=== PATIENT | female | born 1975 | race Caucasian/White ===

== ENCOUNTER 2020-07-06 10:03 | Inpatient (IN) | payer BC ==
[2020-07-06] VITALS (10 sets, daily range): BP systolic 112–189; BP diastolic 59–114
[~2020-07-06] VITALS: Ht 175.2 cm; Wt 126.3 kg
[2020-07-06 12:27] LABS: BASO % 0.3 % (0.0-1.0); EOS # 0.1 10*3/uL (0.0-0.4); EOS % 1.5 % (1.0-4.0); HEMATOCRIT 36.7 % (37.0-47.0); LYMPH # 2.2 10*3/uL (1.3-4.4); LYMPH % 25.2 % (27.0-41.0); MEAN CELL VOLUME 83.4 fl (81.0-99.0); MEAN CORPUSCULAR HGB 26.4 pg (27.0-31.0); MEAN CORPUSCULAR HGB CONC 31.6 g/dl (33.0-37.0); MEAN PLATELET VOLUME 9.3 fl (9.6-12.3); MONO # 0.6 10*3/uL (0.1-1.0); MONO % 6.9 % (3.0-9.0); NEUT # 5.7 10*3/uL (2.3-7.9); NEUT % 65.9 % (47.0-73.0); PLATELET COUNT AUTOMATED 318 10*3/uL (130-400); RED CELL DISTRI WIDTH 15.2 % (0-14.5); WHITE BLOOD COUNT 8.7 10*3/uL (4.8-10.8)
[2020-07-06 12:38] LABS: ACT PARTIAL THROMBO TIME 32.4 SECONDS (20.0-32.1); INTERNATIONAL NORM RATIO 2.1 (2.0-3.5)
[2020-07-06 12:43] LABS: ALBUMIN 3.5 gm/dl (3.1-4.5); ALKALINE PHOSPHATASE 79 U/L (45-117); BUN 12 mg/dl (7-24); CHLORIDE 114 mmol/L (98-107); CREATININE 0.94 mg/dL (0.55-1.02); POTASSIUM 3.3 mmol/L (3.5-5.1); SGOT/AST 14 IU/L (3-35); SGPT/ALT 23 U/L (12-78); SODIUM 141 mmol/L (136-145); TOTAL PROTEIN 7.2 gm/dL (6.4-8.2)
--- NOTE | 2020-07-06 13:13 | NUR ---
PT STATED THAT HER PAIN WAS GOOD AFTER RECIEVING HER MEDICINE.
--- NOTE | 2020-07-06 15:14 | NUR ---
PT SEDATED WITH 20 MG ETOMIDATE, PT TOLERATED WELL. REDUCTION BY DR BRIDGES. SEDATION SUPERVISED BY DR LYNN STARTED TIME 1455 END TIME 1507. SEE VITALS.
--- NOTE | 2020-07-06 16:15 | NUR ---
Time: 1614 A 44 year old FEMALE admitted to 5E under services of JED RIVERA DO, Pt. arrived via stretcher from ER. Chief complaint: FRACTURE RIGHT ANKLE. AMBAR MORALEZ
--- NOTE | 2020-07-06 16:53 | NUR ---
PT REQUESTED AND WAS MEDICATED WITH MORPHINE IV FOR C/O RIGHT ANKLE PAIN.
--- NOTE | 2020-07-06 16:57 | NUR ---
PODITARY DR ALCALA AND RESIDENT AT BEDSIDE TO EXAMINE PATIENT.
--- NOTE | 2020-07-06 17:30 | NUR ---
PT STATES MORPHINE IS HELPING.
--- NOTE | 2020-07-06 17:53 | NUR ---
PT TRANSPORTED TO ER FOR CLOSED REDUCTION OF RIGHT ANKLE PER PODITARY.
--- NOTE | 2020-07-06 18:00 | NUR ---
PT HAS RETURNED TO THER FOR A SECOND REDUCTION.
--- NOTE | 2020-07-06 18:34 | NUR ---
PT IS AWAKE AND TALKING WITH ME. VSS.
--- NOTE | 2020-07-06 18:44 | NUR ---
PT IS WAKE AND ORINETED X3, PT WAS TIRATED TO ROOM AIR POX 97%.
--- NOTE | 2020-07-06 18:46 | NUR ---
START TIME OF SECOND REDUCTION 180 STOP TIME OUT 1816.
--- NOTE | 2020-07-06 18:48 | NUR ---
PT WAKE AND GIVEN ICE CHIPS. PT WILL BE MONITORED IN ER FOR 1 HOUR POST REDUCTION.
--- NOTE | 2020-07-06 19:47 | NUR ---
PATIENT RETURNED BACK TO ROOM VIA BED. RIGHT FOOT WRAPPED LOOKS LIKE SOFT CAST.
--- NOTE | 2020-07-06 20:45 | NUR ---
MORPHINE GIVEN PER ORDER FOR PAIN RIGHT FOOT RATED "6" SEE MAR.
--- NOTE | 2020-07-06 21:40 | NUR ---
MORPHINE EFFECTIVE FOR PAIN PER PT.
[2020-07-06] MEDS ORDERED: MEDROXYPROGESTE10 M1 PO (22:49)
[2020-07-06] MEDS ORDERED: WARFARIN SODIU7.5 MG PO (22:50)
[2020-07-06] MEDS ORDERED: Synthroid,Levo88 MCG PO (22:51)
[2020-07-06] MEDS ORDERED: TOPIRAMATE100 M2 PO (22:52)
[2020-07-06] MEDS ORDERED: OMEPRAZOLE MAGN20 MG PO (22:53)
[2020-07-06] MEDS ORDERED: ESCITALOPRAM OX10 MG PO (22:54)
[2020-07-07] VITALS: BP 103/63
--- NOTE | 2020-07-07 01:14 | NUR ---
MORPHINE GIVEN PER ORDER FOR PAIN RIGHT FOOT RATED "6" SEE MAR. PATIENT UP TO BEDSIDE COMMODE NO WEIGHT BEARING ASSISTANCE X 1 AND USED WALKER FOR STABILITY AND THEN BACK TO BED. RIGHT LEG ELEVATED ON PILLOW
--- NOTE | 2020-07-07 01:30 | NUR ---
2ND IV STARTED IV started left forearm with #22 protective cath after 1st attempts. Site prepped with Chloroprep. Sterile dressing applied. Patient tolerated procedure well. CORINE KAPOOR J
--- NOTE | 2020-07-07 02:10 | NUR ---
PATIENT SLEEPING NO APPEARS TO NOT BE IN DISTRESS AT THIS TIME.
--- NOTE | 2020-07-07 03:55 | NUR ---
HEPARIN STOPPED PER PROTOCOL FOR 1 HR AND DECREASED PER PROTOCOL.
--- NOTE | 2020-07-07 04:22 | NUR ---
CALLED DR. RAINES AND NOTIFIED HIM OF CRITICL PTT AND THAT HEPARIN PROTOCOL IS BEING FOLLOWED. DR. RAINES AGREED.
--- NOTE | 2020-07-07 05:04 | NUR ---
MORPHIN GIVEN PER ORDER FOR RIGHT FOOT PAIN RATED "8" SEE MAR. IV HEPARIN RESTARTED AT LOWER RATE.
--- NOTE | 2020-07-07 05:10 | NUR ---
UP TO BEDSIDE COMMODE ASSISTANCE WITH 1 STAFF/ WALKER NO WEIGHT BEARING ON RIGHT LEG.
--- NOTE | 2020-07-07 06:00 | NUR ---
MORPHINE EFFECTIVE FOR PAIN PER PT.
[2020-07-07 06:38] LABS: BASO # 0.1 10*3/uL (0.0-0.1); BASO % 0.6 % (0.0-1.0); EOS # 0.3 10*3/uL (0.0-0.4); EOS % 4.1 % (1.0-4.0); HEMATOCRIT 35.7 % (37.0-47.0); MEAN CELL VOLUME 82.6 fl (81.0-99.0); MEAN CORPUSCULAR HGB 26.2 pg (27.0-31.0); MEAN CORPUSCULAR HGB CONC 31.7 g/dl (33.0-37.0); MEAN PLATELET VOLUME 9.2 fl (9.6-12.3); MONO # 0.5 10*3/uL (0.1-1.0); NEUT % 50.9 % (47.0-73.0); PLATELET COUNT AUTOMATED 276 10*3/uL (130-400); RED BLOOD COUNT 4.32 10*6/uL (4.10-5.10); RED CELL DISTRI WIDTH 15.2 % (0-14.5); WHITE BLOOD COUNT 7.8 10*3/uL (4.8-10.8)
[2020-07-07 06:48] LABS: BUN 8 mg/dl (7-24); CHLORIDE 113 mmol/L (98-107); CHOLESTEROL 168 mg/dL (<200); CREATININE 0.71 mg/dL (0.55-1.02); HDL CHOLESTEROL 41 mg/dl (40-60); LDL CHOLESTEROL 104 mg/dL (9-159); POTASSIUM 3.2 mmol/L (3.5-5.1); SODIUM 142 mmol/L (136-145); TRIGLYCERIDES 117 mg/dl (<150); VLDL CHOLESTEROL 23 mg/dL (6-40)
[2020-07-07 08:00] VITALS: BP 127/63
--- NOTE | 2020-07-07 08:40 | NUR ---
Stem Roller Operator in to talk to patient. Patient states lives at home with and step daughter. There are 2 story home with basement steps in the home. Physician: Dr. Rosenbaum in [facility] Pharmacy: [facility] in [facility] Home health services: none Patient's level of ADLs: INDEPENDENT Patient has working utilities: yes DME: has crutches at home but very difficult to use them; Follow-up physician's appointment after d/c: make own appointment Does patient want to access PORTAL?: no Discharge plan discussed with patient. She lives in [facility] about 3 hours from here. She came here because she was recommended to see Dr. Villalta for her ankle fracture. She lives with her and step daughter and is normally independent. She will work with surgeon and therapist to determine what equipment will work best for her, she has crutches as home but states they are very difficult for her to use. She will discharge to home and family will transport. . CAROLINA LAMBERT
[2020-07-07 09:18] LABS: INTERNATIONAL NORM RATIO 1.9 (2.0-3.5)
[2020-07-07 09:48] LABS: VITAMIN D, 25-HYDROXY 17.2 ng/mL (30-100)
--- NOTE | 2020-07-07 11:35 | NUR ---
STOPPED HEPATRIN GTT PER PROTOCOL AND NOTIFIED DR SUAREZ OF APTT OF 139.0.
[2020-07-07 12:00] VITALS: BP 117/58
--- NOTE | 2020-07-07 12:40 | NUR ---
RESTARTED HEPARIN GTT PER PROTOCOL. 12 UNITS/KG/HR, 15.12 ML/HR VERIFIED BY ANOTHER RN AND PHARMACIST MATY. PT VOICES NO OTHER NEEDS AT THIS TIME.APTT ORDERED FOR 1840 PER PROTOCOL. WILL CONTINUE TO MONITOR. CALL LIGHT IN REACH.
[2020-07-07 16:00] VITALS: BP 117/69
--- NOTE | 2020-07-07 17:54 | NUR ---
NORCO 5/325 MG GIVEN FOR C/O RIGHT LEG PAIN.01/26.
--- NOTE | 2020-07-07 19:20 | NUR ---
APTT 83.4. HEPARIN TURNED OFF FOR 1 HOUR.
--- NOTE | 2020-07-07 19:35 | NUR ---
MORPHINE 2 MG GIVEN FOR C/O PAIN TO RIGHT LEG,03/29.
[2020-07-07 20:00] VITALS: BP 120/71
--- NOTE | 2020-07-07 20:03 | NUR ---
PATIENT MEDICATED WITH BENADRYL 12.5MG IV FOR COMPLAINTS OF ITCHING. WILL CONTINUE TO MONITOR.
[2020-07-08] VITALS: BP 100/67
--- NOTE | 2020-07-08 00:22 | NUR ---
PATIENT MEDICATED WITH NORCO FOR COMPLAINTS OF RIGHT LEG PAIN. STILL COMPLAINING OF ITCHING. WILL CONTINUE TO MONITOR.
--- NOTE | 2020-07-08 01:20 | NUR ---
NORCO EFFECTIVE. PATIENT IN BED SLEEPING. NO SIGNS OR SYMPTOMS OF DISTRESS NOTED. CALL LIGHT IN REACH.
--- NOTE | 2020-07-08 02:31 | NUR ---
PATIENT MEDICATED WITH ANOTHER 1 TIME DOSE OF BENADRYL 12.5MG IV FOR CONTINUES COMPLAINTS OF ITCHING. WILL CONTINUE TO MONITOR.
[2020-07-08 07:27] LABS: BASO % 0.5 % (0.0-1.0); EOS # 0.3 10*3/uL (0.0-0.4); EOS % 3.4 % (1.0-4.0); HEMATOCRIT 36.7 % (37.0-47.0); LYMPH % 38.8 % (27.0-41.0); MEAN CORPUSCULAR HGB 25.8 pg (27.0-31.0); MEAN CORPUSCULAR HGB CONC 31.1 g/dl (33.0-37.0); MEAN PLATELET VOLUME 9.2 fl (9.6-12.3); MONO # 0.5 10*3/uL (0.1-1.0); MONO % 5.9 % (3.0-9.0); NEUT # 3.9 10*3/uL (2.3-7.9); NEUT % 51.1 % (47.0-73.0); PLATELET COUNT AUTOMATED 301 10*3/uL (130-400); RED BLOOD COUNT 4.42 10*6/uL (4.10-5.10); RED CELL DISTRI WIDTH 15.4 % (0-14.5); WHITE BLOOD COUNT 7.6 10*3/uL (4.8-10.8)
[2020-07-08 07:33] LABS: BUN 10 mg/dl (7-24); CHLORIDE 112 mmol/L (98-107); CREATININE 0.77 mg/dL (0.55-1.02); POTASSIUM 3.3 mmol/L (3.5-5.1); SODIUM 141 mmol/L (136-145)
[2020-07-08 07:42] LABS: INTERNATIONAL NORM RATIO 1.1 (2.0-3.5)
[2020-07-08 08:00] VITALS: BP 116/76
--- NOTE | 2020-07-08 08:15 | NUR ---
24 HR chart check completed.
--- NOTE | 2020-07-08 08:55 | NUR ---
RESTING IN BED. RESPIRATIONS EASY. LUNGS DIMINISHED, CLEAR. PULSE OX 98% RA. BULKY CAST/DRESSING RLE. MEDICATED WITH NORCO PER PRN ORDER FOR COMPLAINTS OF RLE PAIN RATING A 6. HEPARIN INFUSING PER ORDER. CALL LIGHT WITHIN REACH. WILL MONITOR
--- NOTE | 2020-07-08 09:00 | NUR ---
DR LYNN AND ERICK HERE TO ASSESS PATIENT AND DISCUSS PLAN OF CARE
--- NOTE | 2020-07-08 09:40 | NUR ---
STATES RELIEF FROM EARLIER MEDS. CALL LIGHT WITHIN REACH. NO FURTHER VOICED COMPLAINTS
[2020-07-08 12:00] VITALS: BP 118/80
--- NOTE | 2020-07-08 12:00 | NUR ---
RESTING IN BED PLAYING ON LAPTOP. NO DISTRESS NOTED. CALL LIGHT WIHTIN REACH. NO VOICED COMPLAINTS
[2020-07-08 16:00] VITALS: BP 121/71; BP 158/90
--- NOTE | 2020-07-08 17:09 | NUR ---
REQUESTED AND RECEIVED NORCO PER PRN ORDER FOR COMPLAINTS OF RLE PAIN RATING A 5. WILL MONITOR
--- NOTE | 2020-07-08 18:00 | NUR ---
STATES RELIEF FROM EARLIER MEDS. CALL LIGHT WITHIN REACH. NO FURTHER VOICED COMPLAINTS
[2020-07-08 20:00] VITALS: BP 125/62
--- NOTE | 2020-07-08 22:37 | NUR ---
medicated with norco per prn order for complaints of rle pain rating a 5. call light within reach. will monitor
--- NOTE | 2020-07-08 22:55 | NUR ---
DR OLIVO CONTACTED, NEW ORDERS RECEIVED FOR BENADRYL AT PATIENT'S REQUEST
--- NOTE | 2020-07-08 23:15 | NUR ---
meds effective, resting with eyes closed
--- NOTE | 2020-07-08 23:28 | NUR ---
PATIENT MEDICATED WITH BENADRYL FOR COMPLAINTS OF ITCHING. WILL MONITOR FOR EFFECTIVENESS. CALL LIGHT IN REACH.
[2020-07-09] VITALS (10 sets, daily range): BP systolic 101–168; BP diastolic 56–101
--- NOTE | 2020-07-09 00:53 | NUR ---
BENADRYL EFFECTIVE. PATIENT IN BED SLEEPING. NO SIGNS OR SYMPTOMS OF DISTRESS NOTED.
[2020-07-09 06:21] LABS: BUN 8 mg/dl (7-24); CHLORIDE 114 mmol/L (98-107); CREATININE 0.73 mg/dL (0.55-1.02); POTASSIUM 3.4 mmol/L (3.5-5.1); SODIUM 142 mmol/L (136-145)
--- NOTE | 2020-07-09 06:25 | NUR ---
SPOKE WITH DR. OLIVO AND BORING MILL OPERATOR CONTROLLED AREA CHECKER ABOUT PATIENT'S HEPARIN DRIP AND GOING FOR ORIF OF ANKLE TODAY AT 1430. PODIATRY WANTS MEDICAL TO MAKE THE DECISION D/T PATIENT HAVING A PE RECENTLY AND INR NEEDING TO BE BELOW 1.5. DECISION MADE TO LEAVE HEPARIN DRIP RUN.
[2020-07-09 07:30] LABS: BASO % 0.5 % (0.0-1.0); EOS # 0.3 10*3/uL (0.0-0.4); EOS % 3.2 % (1.0-4.0); HEMATOCRIT 37.4 % (37.0-47.0); LYMPH # 3.4 10*3/uL (1.3-4.4); LYMPH % 40.4 % (27.0-41.0); MEAN CORPUSCULAR HGB 26.9 pg (27.0-31.0); MEAN CORPUSCULAR HGB CONC 31.6 g/dl (33.0-37.0); MEAN PLATELET VOLUME 9.7 fl (9.6-12.3); MONO # 0.4 10*3/uL (0.1-1.0); MONO % 5.1 % (3.0-9.0); NEUT # 4.2 10*3/uL (2.3-7.9); NEUT % 50.4 % (47.0-73.0); PLATELET COUNT AUTOMATED 325 10*3/uL (130-400); RED BLOOD COUNT 4.38 10*6/uL (4.10-5.10); RED CELL DISTRI WIDTH 15.3 % (0-14.5); WHITE BLOOD COUNT 8.4 10*3/uL (4.8-10.8)
[2020-07-09 07:34] LABS: MEAN CELL VOLUME 85.4 fl (81.0-99.0)
--- NOTE | 2020-07-09 07:59 | NUR ---
OT NOTE Occupational therapy order and nursing screen received. Will follow up with patient for completion of an OT evaluation. Thank you. Marina Virgen, OTR/L
--- NOTE | 2020-07-09 08:35 | NUR ---
NORCO GIVEN WITH AM MEDS FOR COMPLAINTS OF LEFT LEG/ANKLE PAIN, CALL LIGHT IN REACH, WILL MONITOR FOR EFFECTIVENESS.
--- NOTE | 2020-07-09 09:16 | NUR ---
NORCO EFFECTIVE PER PT, PAIN IS MORE TOLERABLE. CALL LIGHT IN REACH.
--- NOTE | 2020-07-09 11:12 | NUR ---
Discharge Plannerin to talk to patient this a.m. in her Room. Patient states that she Lives at Home with her There are 10 Steps in the Home Physician: Dr. Mart Youssef [facility] Home health services: None Patient's level of ADLs: Independent Patient has working utilities: Yes DME: None, Pt. will require Wheeled Walker due to Non-Wt. Bearing Status and is requesting Knee Resting Scooter. Hospitalist Nurse Director informed Follow-up physician's appointment after d/c: Per Hospitalist Nurse Director Does patient want to access PORTAL?: Yes Discharge plan discussed with Pt. Pt. states that she will return home with her . Declines Home Health Needs and Refusing SNF, Pt requesting Wheeled Walker And Knee Resting Scooter. PAVEL CALLE LPN
--- NOTE | 2020-07-09 12:00 | NUR ---
HEPARIN DRIP STOPPED AT THIS TIME PER ORDERS. NO COMPLAINTS VOICED. CALL LIGHT IN REACH.
--- NOTE | 2020-07-09 12:20 | NUR ---
CAMILO MIXON FROM SURGERY HERE TO GET PT. SAID DOCTOR WAS EARLY. INFORMED HER THE HEPARIN DRIP WAS VERY RECENTLY STOPPED AND SHE WAS A PLANNED SURGERY FOR 0. SAID SHE WOULD LET THE DOCTORS AND ANESTHESIA KNOW.
--- NOTE | 2020-07-09 12:24 | NUR ---
OFF FLOOR FOR SURGERY.
--- NOTE | 2020-07-09 13:13 | NUR ---
OT NOTE Occupational therapy order received and chart reviewed. Per most recent nursing note, patient is off the floor for surgery. Will follow up when patient is post-op. Thank you. Marina Virgen OTR/L
--- NOTE | 2020-07-09 13:14 | NUR ---
PHYSICAL THERAPY Patient currently off floor for surgical procedure. Will follow up at a later date to complete PT evaluation. Thank you. Shelly Cohen,PT,DPT
--- NOTE | 2020-07-09 15:16 | NUR ---
STILL OFF FLOOR FOR ANKLE SURGERY.
[2020-07-09] MEDS ORDERED: TRAMADOL HCL50 MG PO (16:06)
[2020-07-09] MEDS ORDERED: DOXYCYCLINE100 MG PO (16:06)
--- NOTE | 2020-07-09 17:03 | NUR ---
REPORT REC'D FROM CAMILO BERUMEN IN SURGERY. PT TO BE BACK TO ROOM SOON.
--- NOTE | 2020-07-09 17:16 | NUR ---
PHYSICAL THERAPY Nursing screen received and chart reviewed. PT orders received. Patient had surgery this date and is NWB Right LE. Will follow to complete PT evaluation when able. Thank you. Shelly Cohen,PT,DPT
--- NOTE | 2020-07-09 17:20 | NUR ---
BACK TO ROOM FROM SURGERY. VSS. CALL LIGHT IN REACH. STILL COMPLAINS OF FOOT PAIN. WILL CONTINUE TO MONITOR PAIN MEDS GIVEN BY NURSE IN PACU.
--- NOTE | 2020-07-09 18:32 | NUR ---
TYLENOL GIVEN FOR LEG PAIN. WILL MONITOR. CALL LIGHT IN REACH.
--- NOTE | 2020-07-09 20:08 | NUR ---
24 HR chart check completed.
--- NOTE | 2020-07-09 21:00 | NUR ---
resting in bed. respirations easy. lungs diminished, clear. pulse ox 96% ra. bulky cast rle, ice pack in place. andrade/scd lle. call light within reach. no voiced complaints
--- NOTE | 2020-07-09 21:47 | NUR ---
patient dramatic, c/o headache, rle "thumping" and nausea. medicated with zofran and morphine per prn order. will monitor
--- NOTE | 2020-07-09 22:30 | NUR ---
meds effective. patient resting more quietly. call light within reach. no voiced complaints
--- NOTE | 2020-07-09 23:02 | NUR ---
calling out for norco stating "it's due." medicated with norco per prn order for complaints of rle pain rating a 7. call light within reach. will monitor
--- NOTE | 2020-07-09 23:50 | NUR ---
meds effective. sleeping
[2020-07-10] VITALS: BP 138/72
--- NOTE | 2020-07-10 00:24 | NUR ---
patient requested and received tylenol per prn order stating "i just want to sleep."
--- NOTE | 2020-07-10 01:00 | NUR ---
sleeping. respirations easy. pulse ox 99% ra. call light within reach
--- NOTE | 2020-07-10 05:11 | NUR ---
PRN NORCO AND TYLENOL GIVEN WITH 0600 MEDICATIONS FOR C/O LEG PAIN. WILL MONITOR. CALL LIGHT IS WITHIN REACH.
--- NOTE | 2020-07-10 06:00 | NUR ---
earlier meds appear effective. sleeping.
[2020-07-10 08:00] VITALS: BP 118/62
--- NOTE | 2020-07-10 08:45 | NUR ---
Occupational Therapy evaluation completed on five with full evaluation to follow. Recommend occupational therapy per plan of care and Home with HH upon discharge. Thank you for this referral. Marina Virgen OTR/L
--- NOTE | 2020-07-10 09:39 | NUR ---
PHYSICAL THERAPY Physical therapy evaluation completed. Full details and evaluation to follow. Moderate complexity skilled PT evaluation performed [id number]. PT will work on strength, gait, AD usage, balance, transfers and safety per POC. Recommend home with home health at discharge. Nanda Subramanian PT DPT
[2020-07-10] MEDS ORDERED: ENOXAPARIN150 MG/1 M SC (10:28)
[2020-07-10] MEDS ORDERED: VITAMIN D350 MC2 PO (10:28)
--- NOTE | 2020-07-10 11:15 | NUR ---
JOSE EDUARDO GIVEN FOR COMPLAINTS OF RT FOOT PAIN. CALL LIGHT IN REACH. WILL MONITOR.
[2020-07-10 12:00] VITALS: BP 118/64
--- NOTE | 2020-07-10 12:02 | NUR ---
[facility]. CALL LIGHT IN REACH. WILL MONITOR.
--- NOTE | 2020-07-10 15:57 | NUR ---
Discharge instructions reviewed with patient/family. Patient receptive and verbalizes understanding. Follow-up care arranged. Written instructions given to patient/family. DAVIDE GALAN
--- NOTE | 2020-07-11 07:59 | NUR ---
PHYSICAL THERAPY CO-SIGN I approve of the Physical Therapy notes written above. CHRIST MARTINEZ PT,DPT
== END 2020-07-10 15:45 | disposition home or self-care (01) | DRG 488 ==
LOC: ED 10:03 → EDHOLD 11:34 → 5E 11:34
PROVIDERS: Internal Medicine; Physician Assistant; Student in an Organized Health Care Education/Training Program; ADMIT Internal Medicine; ATTEND Internal Medicine
PROC: 0SSFXZZ Reposition Right Ankle Joint, External Approach (ICD-10-PCS; 2020-07-06)
PROC: 2W3LX1Z Immobilization of Right Lower Extremity using Splint (ICD-10-PCS; 2020-07-06)
PROC: 5A0935A Assistance with Respiratory Ventilation, Less than 24 Consecutive Hours, High Flow/Velocity Cannula (ICD-10-PCS; 2020-07-06)
PROC: 0QSJ04Z Reposition Right Fibula with Internal Fixation Device, Open Approach (ICD-10-PCS; principal; 2020-07-09)
PROC: 0MQN0ZZ Repair Right Knee Bursa and Ligament, Open Approach (ICD-10-PCS; 2020-07-09)
PROC: 0QSG04Z Reposition Right Tibia with Internal Fixation Device, Open Approach (ICD-10-PCS; 2020-07-09)
PROC: 0SSF0ZZ Reposition Right Ankle Joint, Open Approach (ICD-10-PCS; 2020-07-09)
DX: S82.851A Displaced trimalleolar fracture of right lower leg, initial encounter for closed fracture (principal); I26.92 Saddle embolus of pulmonary artery without acute cor pulmonale; D68.61 Antiphospholipid syndrome; E27.1 Primary adrenocortical insufficiency; E87.6 Hypokalemia; E06.3 Autoimmune thyroiditis; E83.51 Hypocalcemia; D64.9 Anemia, unspecified; S89.91XA Unspecified injury of right lower leg, initial encounter; W18.30XA Fall on same level, unspecified, initial encounter; E87.8 Other disorders of electrolyte and fluid balance, not elsewhere classified; F32.9 Major depressive disorder, single episode, unspecified; Z88.8 Allergy status to other drugs, medicaments and biological substances; Z90.49 Acquired absence of other specified parts of digestive tract; Z88.0 Allergy status to penicillin; Z83.3 Family history of diabetes mellitus; Z80.9 Family history of malignant neoplasm, unspecified; Z88.5 Allergy status to narcotic agent; Y93.89 Activity, other specified; Y92.89 Other specified places as the place of occurrence of the external cause; Y99.8 Other external cause status

== ENCOUNTER → 2021-01-09 | Day surgery (SDC) | payer BC ==
[2021-01-09] VITALS (9 sets, daily range): BP systolic 122–160; BP diastolic 77–92
[~2021-01-09] MED LIST: DOXYCYCLINE100 MG PO; ENOXAPARIN150 MG/1 M SC; ESCITALOPRAM OX10 MG PO; LAMICTAL ODT50 MG MM; LOVENOX120 MG/0.8 SC; MEDROXYPROGESTE10 M1 PO; OMEPRAZOLE MAGN20 MG PO; Synthroid,Levo88 MCG PO; TOPIRAMATE100 M2 PO; TRAMADOL HCL50 MG PO; ULTRAM50 MG PO; VISTARIL25 MG PO; VITAMIN D350 MC2 PO; WARFARIN SODIU7.5 MG PO
[2021-01-09 09:07] LABS: BASO # 0.1 10*3/uL (0.0-0.1); BASO % 0.7 % (0.0-1.0); EOS # 0.2 10*3/uL (0.0-0.4); HEMATOCRIT 41.3 % (37.0-47.0); LYMPH # 2.8 10*3/uL (1.3-4.4); LYMPH % 40.7 % (27.0-41.0); MEAN CELL VOLUME 80.5 fl (81.0-99.0); MEAN CORPUSCULAR HGB 25.9 pg (27.0-31.0); MEAN CORPUSCULAR HGB CONC 32.2 g/dl (33.0-37.0); MEAN PLATELET VOLUME 9.1 fl (9.6-12.3); MONO # 0.4 10*3/uL (0.1-1.0); MONO % 5.3 % (3.0-9.0); NEUT # 3.4 10*3/uL (2.3-7.9); PLATELET COUNT AUTOMATED 335 10*3/uL (130-400); RED BLOOD COUNT 5.13 10*6/uL (4.10-5.10); RED CELL DISTRI WIDTH 15.3 % (0-14.5); WHITE BLOOD COUNT 6.8 10*3/uL (4.8-10.8)
[2021-01-09 09:15] LABS: POTASSIUM 3.7 mmol/L (3.5-5.1)
== END | disposition home or self-care (01) ==
LOC: SDC 01-04 14:00
PROVIDERS: ATTEND Podiatrist
DX: T84.84XA Pain due to internal orthopedic prosthetic devices, implants and grafts, initial encounter (principal); I10 Essential (primary) hypertension; F41.9 Anxiety disorder, unspecified; F32.9 Major depressive disorder, single episode, unspecified; Z86.711 Personal history of pulmonary embolism; Z90.89 Acquired absence of other organs; Z98.890 Other specified postprocedural states; Z88.0 Allergy status to penicillin; Z88.5 Allergy status to narcotic agent; Z88.8 Allergy status to other drugs, medicaments and biological substances; Y83.8 Other surgical procedures as the cause of abnormal reaction of the patient, or of later complication, without mention of misadventure at the time of the procedure